=== PATIENT | male | born 1970 | race Caucasian/White ===

== ENCOUNTER → 2024-09-09 11:31 | Outpatient (REF) | payer BC, SELFPAY | LOC: RAD 11:31 | PROVIDERS: ATTENDING PHYSICIAN Nurse Practitioner Family | DX: M79.672 Pain in left foot (principal) | CPT/HCPCS: 73650 ==

== ENCOUNTER 2025-07-26 06:15 | Day surgery (SDC) | payer BC, SELFPAY ==
[2025-07-26] VITALS (9 sets, daily range): BP systolic 126–153; BP diastolic 66–83; BMI 35.5
[2025-07-26] MEDS: NORMOSOL-R/PLASMALYTE-A 1000 IV (11:16)
[2025-07-26] MEDS: TYLENOL 1000 MG PO (11:19)
== END 2025-07-26 16:00 | disposition home or self-care (01) ==
LOC: SDS 06:15
PROVIDERS: ATTENDING PHYSICIAN Otolaryngology
DX: R22.0 Localized swelling, mass and lump, head (principal)
CPT/HCPCS: 40814; 88304